=== PATIENT | female | born 1960 | race Caucasian/White ===

== ENCOUNTER → 2023-04-12 10:56 | Outpatient (REF) | payer OTHER, SELFPAY | LOC: HWRAD 10:56 | PROVIDERS: ATTENDING PHYSICIAN Family Medicine | DX: Z87.891 Personal history of nicotine dependence (principal) | CPT/HCPCS: 71271 ==

== ENCOUNTER → 2023-06-25 08:43 | Outpatient (REF) | payer OTHER, SELFPAY | LOC: RAD 08:43 | PROVIDERS: ATTENDING PHYSICIAN Surgery Vascular Surgery; FAMILY PHYSICIAN Family Medicine | DX: I71.43 Infrarenal abdominal aortic aneurysm, without rupture (principal) | CPT/HCPCS: 76770 ==

== ENCOUNTER 2023-09-19 19:38 | Inpatient (IN) | payer OTHER, SELFPAY ==
[2023-09-19 15:59] VITALS: BP 162/100
[2023-09-19 16:17] LABS: % Basophils 0.7 % (0-2); % Eosinophils 0.2 % (0-6); % Immature Granulocytes 0.7 % (0-0.5); % Lymphocytes 19.4 % (20.5-51.1); % Monocytes 9.4 % (1.7-9.3); % Neutrophils 69.6 % (42.2-75.2); Absolute Basophils 0.1 10^3/uL (0-0.2); Absolute Immature Granulocytes 0.1 10^3/uL (0-0.05); Absolute Neutrophils 7.2 10^3/uL (1.4-6.5); Hematocrit 34.9 % (37.0-47.0); Hemoglobin 12.3 g/dL (12.0-16.0); Mean Corp Hgb Conc. 35.2 g/dL (33.0-37.0); Mean Corpuscular Hgb 33.3 pg (27.0-31.0); Mean Corpuscular Volume 94.6 fL (81.0-99.0); Mean Platelet Volume 8.8 fL (7.4-10.4); Nucleated Red Blood Cells % 0 %; Platelet Count 295 10^3/uL (130-400); Red Blood Cell Count 3.69 10^6/uL (4.20-5.40); Red Cell Dist. Width 13.2 % (11.5-14.5); White Blood Cell Count 10.3 10^3/uL (4.8-10.8)
[2023-09-19 16:39] LABS: ALT (SGPT) 41 U/L (0-35); AST (SGOT) 36 U/L (14-36); Albumin 4.2 g/dl (3.5-5.0); Alkaline Phosphatase 56 U/L (38-126); Blood Urea Nitrogen 21 mg/dl (7-17); Calcium 9.1 mg/dl (8.4-10.2); Carbon Dioxide 23 mmol/L (22-30); Chloride 106 mmol/L (98-107); Glucose 109 mg/dl (70-99); Potassium 4.2 mmol/L (3.5-5.1); Sodium 139 mmol/L (135-145); Total Bilirubin 0.5 mg/dl (0.2-1.3); Total Protein 6.9 g/dl (6.3-8.2); eGFR > 60.00
--- NOTE | 2023-09-19 16:58 | ED.GENMED ---
History of Present Illness
General
Chief Complaint: Rectal Bleeding
Source: patient
Exam Limitations: none
Time Seen by Provider: 09/19/23 16:57
Nursing documentation reviewed up to this point in time: agreed with
History of Present Illness
History of Present Illness:
63-year-old female with history of HTN, GERD, hypothyroidism, seen 2 weeks ago by colorectal for anal fissure, states this has completely resolved.
She is here today for a total of 7 bloody stools since yesterday. Her last bowel movement was 2 hours ago. She typically has 3-4 stools a day. She has a picture on her phone of her last 2 stools. There is old large amount of blood with formed
stool in the toilet and 1 picture and then after that she has black stool with some maroon water in the toilet. She has 'a little' abdominal pain at times, nothing significant. She denies fever or chills. She denies weakness or dizziness,
shortness of breath or chest pain.
Past History
Past History
ED Past Medical History: GERD, Hypothyroidism and Other (Degenerative disc disease in the cervical spine, Tinnitus, hepatitis C); Negative Arrthythmia, HTN, Hypercholesterolemia or NIDDM
ED Past Surgical History: None
Patient has exhibited threatening behavior?: No
Social History
Tobacco: Smoker
Alcohol: Occasional (rare)
Drug: None
Personal: Single
Living: with family
Employment: Employed
Family History
Family History: Hypertension; Negative Early CAD
Review of Systems
Review of Systems
Allergies reviewed?: Yes
All Other Systems: ROS reviewed and negative except as documented in HPI and ROS
Constitutional: Denies fever
Respiratory: Denies trouble breathing
Cardiac: Denies chest pain or syncope
ABD/GI: Reports bloody stools; Denies abdominal pain, nausea or vomiting
: Denies dysuria or difficulty voiding
Musculoskeletal: Reports no symptoms
Skin: Reports no symptoms
Phy Exam
Physical Exam
Physical Exam:
GENERAL: No acute distress. A&Ox3.
CONSTITUTIONAL: Afebrile.
EYES: Clear, conjunctivae normal
ENMT: moist mucus membranes, Pharynx nl
RESPIRATORY: Regular respirations, nonlabored, lungs clear.
CARDIOVASCULAR: Regular rate and rhythm, no murmurs, no rubs.
GI: Soft, nontender, normal BS
Rectal:
MUSCULOSKELETAL: Moves with ease. Well perfused.
SKIN: Warm, dry, pink
PSYCH: Normal mood and affect. Well kept, interactive and appropriate
NEUROLOGIC: Awake, alert and oriented. No focal neurological deficits
Scores
GI Bleed
History of cardiac failure?: No
History of hepatic failure?: No
History of recent syncope?: No
Pulse >100?: No
SBP <110?: No
Hgb <13 (male) <12 (female)?: No
BUN >18mg/dL?: Yes
Melena present?: Yes
Recommendation: Pt has higher risk for needing a medical intervention. Inpatient admission recommended.
Course
Orders/Labs/Results
Orders:
Orders
09/19/23 Breakfast
Clear Liquid
09/19/23 16:12
Complete Blood Count/With Diff Urgent
Comprehensive Metabolic Panel Urgent
09/19/23 17:51
CT Angio Abd/Pelvis w/wo IV [CT Abd/pelvis Angio W/wo Iv] Urgent
Comment:
Reason For Exam: lower GI bleeding
09/19/23 18:07
Type+Screen Urgent
09/19/23 18:57
Admit/Transfer Patient As Directed
Co-Sign Provider:
Level of Care: Inpatient admission
Assign to:: Medical/Surgical
Physician / Group: lissa
Diagnosis: rectal bleed
Reason for Hospitalization: rectal bleed
Expected length of stay greater than two midnights?: Yes
ELOS- Estimated Length of Stay in days: 3
I certify the patient meets the requirements for IP care: Yes
PRN Pain Medication Management As Directed
May give lesser potent ordered pain med per pt: Yes
preference::
Protocol:: Medication orders for pain may be administered in a
manner that supports deferring to patient preference
when the pt is:
- Requesting an ordered lesser potent pain medication.
Least to most potent pain medications are defined
as: acetaminophen < NSAID < tramadol < opioids
(morphine, oxycodone, hydromorphone).
- Requesting a lesser dose of the same medication IF
ORDERED.
- Requesting a less intrusive route of administration
if both routes are prescribed by the provider (PO <
IV).
09/19/23 18:58
Code Status As Directed
Resuscitation Status: Full Code
09/19/23 20:26
GASTROINTESTINAL CONSULT Routine
Consulting Provider: Humberto Kitchen
Was physician already notified: Yes
Activity As Directed
Activity Level: As Tolerated
INT (Intravenous Needle Therapy) As Directed
Comment: Place 2 IV catheters of the largest bore possible until stable
Orthostatic Vital Signs As Directed
Orthostatic VS Frequency: Now
Comment: then every four hours for twenty-four hours
Pneumatic Compression Sleeves As Directed
Type: Thigh high
Vital Signs As Directed
Frequency: Per unit guidelines
DX Deep Vein Thrombosis Video Routine
09/19/23 21:00
Pantoprazole [Protonix IV] 40 mg IV BID
09/20/23 00:00
H&H Q6H
09/20/23 Breakfast
NPO
Allow oral meds: Yes
Allow clear liquids: No
NPO for procedure after (time): 09/20/2023 0000
Basic Metabolic Panel IN AM
Complete Blood Count/No Diff IN AM
H&H Q6H
Levothyroxine [Synthroid] 125 mcg PO DAILY@0600
09/20/23 08:00
Lisinopril [Zestril] 10 mg PO DAILY
Metoprolol Xl [Toprol Xl] 25 mg PO DAILY
09/20/23 12:00
H&H Q6H
09/20/23 18:00
H&H Q6H
Atorvastatin [Lipitor] 10 mg PO QPM
09/21/23 06:00
Basic Metabolic Panel IN AM
Complete Blood Count/No Diff IN AM
09/22/23 06:00
Basic Metabolic Panel IN AM
Complete Blood Count/No Diff IN AM
09/23/23 06:00
Basic Metabolic Panel IN AM
Complete Blood Count/No Diff IN AM
09/24/23 06:00
Basic Metabolic Panel IN AM
Complete Blood Count/No Diff IN AM
Abnormal Lab Results
09/19/23
16:12
RBC 3.69 L 10^6/uL
(4.20-5.40)
Hct 34.9 L %
(37.0-47.0)
MCH 33.3 H pg
(27.0-31.0)
Abs Immat Gran (auto) 0.1 H 10^3/uL
(0-0.05)
Absolute Neuts (auto) 7.2 H 10^3/uL
(1.4-6.5)
Absolute Monos (auto) 1.0 H 10^3/uL
(0.1-0.6)
Immature Gran % 0.7 H %
(0-0.5)
Lymphocytes % 19.4 L %
(20.5-51.1)
Monocytes % 9.4 H %
(1.7-9.3)
BUN 21 H mg/dl
(7-17)
Glucose 109 H mg/dl
(70-99)
ALT 41 H U/L
(0-35)
09/19/23 16:12
09/19/23 16:12
Vital Signs
Initial and Last Documented VS:
Initial Vital Signs
Temp Pulse Resp BP Pulse Ox
98.7 F 85 18 162/100 95
09/19/23 15:59 09/19/23 15:59 09/19/23 15:59 09/19/23 15:59 09/19/23 15:59
Last Documented Vital Signs
Temp Pulse Resp BP Pulse Ox
98.7 F 85 18 162/88 96
09/19/23 20:30 09/19/23 20:30 09/19/23 20:30 09/19/23 20:30 09/19/23 20:40
MDM/Problems Addressed
Differential Diagnosis Includes:
Hemorrhoid, fissure, GI bleed
MDM/Problems Addressed:
63-year-old female with history of HTN, GERD, hypothyroidism, seen 2 weeks ago by colorectal for anal fissure, states this has completely resolved.
She is here today for a total of 7 bloody stools since yesterday. Her last bowel movement was 2 hours ago. She typically has 3-4 stools a day. She has a picture on her phone of her last 2 stools. There is old large amount of blood with formed
stool in the toilet and 1 picture and then after that she has black stool with some maroon water in the toilet. She has 'a little' abdominal pain at times, nothing significant. She denies fever or chills. She denies weakness or dizziness,
shortness of breath or chest pain.
5:15 p.m.
Abdomen benign
Rectal: no stool in rectal vault, flecks of red in mucus, hematests positive, no visible hemorrhoids, rectal exam non tender
CBC: No clinically significant abnormality
CMP: BUN 21 otherwise no clinically significant abnormality
Hospitalist notified of admission. Pt remains stable
Blood consent signed and scanned into chart
5:50 p.m.
Hospitalist requests CTA, ordered.
*Critical Care Note
Total Time (30-74mins, 75-104mins- exclusive of procedures): Not Applicable
ED Attending Note
-
Portions of this chart may have been created with voice recognition software.� Occasional wrong word or��sound alike� substitutions may have occurred due to the inherent limitations of voice recognition software.
Discharge Plan
Departure
Patient Disposition: Admit
Date of Disposition: 09/19/23
Time of Disposition: 17:12
Admit to: Med/Surg
Presentation/result/management discussed w/ accepting MD/DO: Hospitalist
Condition: Good
Discharge Problem:
Rectal bleeding
Interventions
Interventions:
*Risk Screen - Suicide Last Done: 09/19/23 15:59
*General Assessment Last Done: 09/19/23 15:59
*Neglect/Abuse Screening Last Done: 09/19/23 15:59
*ED COVID-19 Vaccine History Last Done: 09/19/23 20:37
*Nursing Disposition Last Done: 09/19/23 20:15
VO-Ssepsi-Bkrrbhmnva Assessment Last Done: 09/19/23 17:19
ED- Cardiac Assessment Last Done: 09/19/23 17:19
ED- Pulmonary Assessment Last Done: 09/19/23 17:19
Discharge Date and Time
Discharge Date/Time: 09/19/23 20:15
[2023-09-19 17:18] VITALS: BP 139/69
[2023-09-19 17:19] VITALS: BMI 36.8
[2023-09-19 18:00] VITALS: BP 118/74
--- NOTE | 2023-09-19 18:43 | HPS.HSE ---
Family Physician
-
Family Physician: Hilario Villarreal
Chief Complaint
-
rectal bleed
History of Present Illness
63-year-old female with history of HTN, GERD, hypothyroidism, seen 2 weeks ago by colorectal for anal fissure, states this has completely resolved presented to us with rectal bleeding since yesterday. stated started off with blood bloody stool and
then changed to dark purple color. last BM was 3 hours ago. stated some mild abdominal cramps. denied n/v. she takes aspirin daily. she was also taking Aleve daily for last four months. she stopped taking Aleve four days ago due to elevated liver
enzymes. denied fever, chills, chest pain, sob. denied ZAIDI, dizzy or syncopal episode. denied dysuria or hematuria.
on arrival hgb stable at 12.0.heme test positive. admitting for further managment.
Medical History
Past Medical History
Past Medical History: Reports Other
Additional Past Medical History:
AAA
htn
lumbar radiculopathy
hld
Past Surgical History: Reports Other
Additional Past Surgical History:
bunionectomy
Social History
Tobacco: Former Smoker
Alcohol: Occasional
Drug: None
Family History
Family History: Not pertinent
Allergies / Home Medications
Allergies reflects when Allergies were last updated in [facility].
Home Medications with original date entered in [facility]
Allergy/Medication List:
Allergies
Allergy/AdvReac Type Severity Reaction Status Date / Time
No Known Allergies Allergy Verified 09/19/23 15:59
Home Medications
levothyroxine 125 mcg tablet 125 mcg PO DAILY 04/11/11
atorvastatin 10 mg tablet 10 mg PO QPM 12/23/20
cyclobenzaprine 10 mg tablet 10 mg PO TIDPRN PRN pain 12/23/20
lisinopril 5 mg tablet 10 mg PO DAILY 12/23/20
aspirin 81 mg tablet,delayed release 81 mg PO DAILY 09/19/23
metoprolol succinate 25 mg tablet,extended release 24 hr 25 mg PO DAILY 09/19/23
Review of Systems
-
Constitutional: Reports No Symptoms
EENT: Reports No Symptoms
Respiratory: Reports No Symptoms
Cardiac: Reports No Symptoms
Abdomen/GI: Reports Bloody Stools and Black Stools
: Reports No Symptoms
Musculoskeletal: Reports No Symptoms
Skin: Reports No Symptoms
Neurological: Reports No Symptoms
Endocrine: Reports No Symptoms
Hematologic/Lymphatic: Reports No Symptoms
Psych: Reports No Symptoms
Physical Exam
Vital Signs
Vital Signs
Temp Pulse Resp BP Pulse Ox
98.7 F 85 18 139/69 97
09/19/23 15:59 09/19/23 15:59 09/19/23 15:59 09/19/23 17:18 09/19/23 17:18
Physical Exam
General: Well Developed, Well Nourished and No Apparent Distress
HEENT: NormoCephalic, Moist mucous membranes and Atraumatic
Respiratory: Clear
Cardiac: S1/S2 and Regular Rhythm; No Murmur or Rub
GI: Soft, Non Tender, Non Distended and Normal Bowel Sounds; No Organomegaly
Rectal: Deferred by Provider
Musculoskeletal: No Clubbing, No Cyanosis and No Edema
Skin: No Rash
Neuro: AO x 3 and Nonfocal/grossly intact
Psych: Calm
Laboratory Results
-
09/19/23 16:12
09/19/23 16:12
Laboratory Results
Total Bilirubin 0.5 mg/dl (0.2-1.3) 09/19/23 16:12
AST 36 U/L (14-36) 09/19/23 16:12
ALT 41 U/L (0-35) H 09/19/23 16:12
Alkaline Phosphatase 56 U/L (38-126) 09/19/23 16:12
Data Reviewed
-
Lab Data: Labs Reviewed by me
Impression/Plan
-
#rectal bleeding likely lower GI bleed concern for diverticular bleed
-hgb stable at 12.3
-heme test positive
-trend hgb, transfuse if hgb less than 7
-NPO after MN
-GI consulted
-IV PPI BID
-consented for transfusion in ER.
#HLD
-statin
#hypothyroidism
-levothyroxine
#essential htn
-lisinopril and metoprolol continued with hold parameters
#dvt prophylaxis
-scd
#CODE status
-full code
--- NOTE | 2023-09-19 19:07 | W.PN.UPDATE ---
Update Note
Progress Note Update
Patient seen in conjunction with [employer]. Agree with obtained history, physical and assessment and plan.
Briefly, this is a 63 y.o female with h/o hypothyroid, htn, hld presenting to ED with 2 days of rectal bleeding. She last had a colonoscopy 10 years ago. She had recent issue with anal fissure and sees colorectal with plan for upcoming
colonosocpy. She denies any rectal pain, abdominal pain, nausea, vomiting, diarrhea. She reports sudden onset of bright red bloody bowel movement up to 7 times a day then turning dark. She denies dizziness or lightheadedness. She reports nsaid
use and is on baby aspirin which she discontinued 2 days ago. She denies any knowledge of diverticula disease.
In ED she was hemodynamically stable. SBP 118, DBP 74. p 77. Hgb 12.3, unchanged. Normal platelet at 295. Chemistries wnl. CT GI bleed pending.
Lower GI bleed - Suspect diverticular vs hemorrhoidal bleeding. Patient well appearing and hemodynamically stable with stable Hgb.
- clear liquid diet, npo after midnight
- type and screen, trend h/h and transfuse for goal Hgb > 7
- hold aspirin
- GI consultation and notified, to see in am.
DVT PPX with SCDs
Ful Code
[2023-09-19 20:30] VITALS: BP 162/88
[2023-09-19 20:31] VITALS: BMI 36.7
[2023-09-19 20:51] VITALS: BP 131/86; BP 133/80; BP 141/75; PULSE 72; PULSE 80; PULSE 92
[2023-09-19] MEDS: PROTONIX IV 40 MG IV (21:05)
[2023-09-19] MEDS: NSS (PRESERVATIVE FREE) 10 ML IV (21:06)
[2023-09-19] MEDS: TOPROL XL 25 MG PO (21:06)
[2023-09-19] MEDS: LIPITOR 10 MG PO (21:06)
--- NOTE | 2023-09-19 21:41 | PTCARENOTE ---
Pt admitted to 4E. pt si AAOX3, regular heart sounds , + pulses. and traces of BLLE. Lung sounds are clear. Pt wears CPAP HS, but will prefer O2 while being in the hospital, [employer] notified. Abd round and obese. SCD in place. Pt was inform of being NPO
at midnight.
[2023-09-19 23:56] VITALS: BP 112/70; BP 116/75; BP 120/73; PULSE 76; PULSE 84; PULSE 93
[2023-09-20 00:31] LABS: Hematocrit 33.5 % (37.0-47.0); Hemoglobin 11.7 g/dL (12.0-16.0)
[2023-09-20] MEDS: SYNTHROID 125 MCG PO (04:31)
[2023-09-20 05:09] LABS: Hematocrit 31.9 % (37.0-47.0); Hemoglobin 11.1 g/dL (12.0-16.0); Mean Corp Hgb Conc. 34.8 g/dL (33.0-37.0); Mean Corpuscular Hgb 34.2 pg (27.0-31.0); Mean Corpuscular Volume 98.2 fL (81.0-99.0); Mean Platelet Volume 9.2 fL (7.4-10.4); Platelet Count 262 10^3/uL (130-400); Red Blood Cell Count 3.25 10^6/uL (4.20-5.40); Red Cell Dist. Width 13.1 % (11.5-14.5); White Blood Cell Count 8.8 10^3/uL (4.8-10.8)
[2023-09-20 05:32] LABS: Blood Urea Nitrogen 20 mg/dl (7-17); Calcium 8.8 mg/dl (8.4-10.2); Carbon Dioxide 25 mmol/L (22-30); Chloride 105 mmol/L (98-107); Estimated Creatinine Clearance 67 ml/min; Glucose 88 mg/dl (70-99); Potassium 4.3 mmol/L (3.5-5.1); Sodium 137 mmol/L (135-145); eGFR > 60.00
[2023-09-20 07:10] VITALS: BP 113/60; BP 113/65; BP 114/60; PULSE 57; PULSE 65; PULSE 68
[2023-09-20] MEDS: ZESTRIL 10 MG PO (08:50)
[2023-09-20] MEDS: NSS (PRESERVATIVE FREE) 10 ML IV ×2 (08:50→20:50)
[2023-09-20] MEDS: PROTONIX IV 40 MG IV ×2 (08:50→20:49)
--- NOTE | 2023-09-20 08:58 | CON.GI ---
Addendum entered and electronically signed by Humberto Kitchen MD 09/20/23 14:34:
I saw and examined the patient.
The medical lab specialist's note was reviewed and I agree with the note.
Comment: 63yo female presents with painless rectal bleeding. She was recently treated by Colorectal Surgery for anal fissure, but that resolved. Last colonoscopy at [facility] about 10 yrs ago negative. She has had 3 colonoscopies in the past all
negative. CTA showed no active bleeding, there was 5cm length bowel wall thickening proximal sigmoid without stranding. Hgb has remained stable in 11 range after admission hgb 12.3
REC:
Will plan colonoscopy tomorrow to evaluate bleeding, possibly diverticular
No pain or tenderness to suggest diverticulitis despite thickening seen on CT
Follow Hgb and transfuse as needed
Original Note:
Consultation
-
Date/Time Consultation Performed: 09/20/23
Performing Provider: Len/Imtiaz
Reason for Consultation: rectal bleeding
Medical History
Chief Complaint / HPI
Chief Complaint: Rectal bleeding
History of Present Illness:
Patient is a 63 year old female with past medical history of anal fissure, hemorrhoids, stable AAA (follows with vascular), degenerative disc disease, lumbar radiculopathy, who presented to ED 09/18 from home for rectal bleeding. She had a total of 7
formed bowel movements yesterday, and the first one was grossly bloody with bright red blood in the toilet bowel. The subsequent 6 bowel movements were dark black. She had no pain with defecation, no diarrhea. She has a recent history of anal
fissure and constipation, which she reports have completely resolved. Her normal bowel movements are ~3x/day, brown, soft, easy to pass. She denies any black/bloody stools prior to yesterday. She has occasional bloating and reflux, and she denies
abdominal pain, nausea, vomiting, pain/difficulty/coughing with swallowing. For the past month, she was taking 1 extra-strength aleve daily for back pain, and stopped about 5 days ago. She takes 2 extra-strength tylenol about twice per week. Baby
aspirin daily. Denies lightheadedness, dizziness, fevers/chills, chest pain, SOB.
She previously followed with GI at [facility] for anal fissures and hemorrhoids, but not in the past 10 years. She had a hemorrhoids cauterization at the time of her last colonoscopy in ~2013, which she states was normal and recommended repeating in 10
years. She has a remote history of hepatitis C, which was treated.
In the ED: Hgb 12.3 (stable from 2020)
AST 36, ALT 41, Tbili 0.5, alk phos 56, BUN 21, Cr 0.8, BUN/Cr 26.25
Past Medical History
Past Medical History: GERD, HTN, Hypercholesterolemia, Hypothyroidism and Other (anal fissure, hemorrhoid, AAA without rupture, lumbar radiculopathy, degenerative disc disease cervical spine, hepatitis C s/p treatment, PADMA)
Past Surgical History: Other (bunionectomy)
Social History
Tobacco: Former Smoker (last use ~5y ago (previously 1 pack per day x40 years))
Alcohol: Former (last use ~2018 (previously drank ~12 beers per week for a few years))
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
Personal: Single
Living: Alone
Employment: Retired (data technical lead)
Family History
Family History: CAD ([place]- mother, sister), Cancer (lung cancer- sister, throat cancer- brother), Diabetes, Hypertension and Other (AAA- brother s/p repair ', sister, mother; diverticulitis- mother, sister; colonic polyps- mother)
Allergies / Home Medications
Allergy/AdvReac Type Severity Reaction Status Date / Time
No Known Allergies Allergy Verified 09/19/23 15:59
�Medication �Instructions �Recorded
levothyroxine 125 mcg tablet 125 mcg PO DAILY 04/11/11
atorvastatin 10 mg tablet 10 mg PO HS 12/23/20
cyclobenzaprine 10 mg tablet 10 mg PO TIDPRN PRN pain 12/23/20
lisinopril 5 mg tablet 10 mg PO DAILY 12/23/20
aspirin 81 mg tablet,delayed 81 mg PO DAILY 09/19/23
release
metoprolol succinate 25 mg 25 mg PO HS 09/19/23
tablet,extended release 24 hr
Review of Systems
-
All other systems: A 12 pt ROS was Negative except as stated above in HPI
Vital Signs
Temp Pulse Resp BP Pulse Ox
98.1 F 57 16 113/60 96
09/20/23 07:10 09/20/23 07:10 09/20/23 07:10 09/20/23 07:10 09/20/23 07:10
Physical Exam
Exam
General: Ambulating room well and sitting comfortably in bed, no acute distress.
Heart: Regular rate and rhythm.
Lungs: Nonlabored breathing. Clear and equal to auscultation bilaterally.
GI: Normal bowel sounds present. Abdomen soft, nontender, nondistended. No rebound, rigidity, guarding.
Results
WBC 8.8 10^3/uL (4.8-10.8) 09/20/23 04:28
Hgb 11.1 g/dL (12.0-16.0) L 09/20/23 04:28
Hct 31.9 % (37.0-47.0) L 09/20/23 04:28
MCV 98.2 fL (81.0-99.0) 09/20/23 04:28
Plt Count 262 10^3/uL (130-400) 09/20/23 04:28
Absolute Neuts (auto) 7.2 10^3/uL (1.4-6.5) H 09/19/23 16:12
Sodium 137 mmol/L (135-145) 09/20/23 04:28
Potassium 4.3 mmol/L (3.5-5.1) 09/20/23 04:28
Chloride 105 mmol/L (98-107) 09/20/23 04:28
Carbon Dioxide 25 mmol/L (22-30) 09/20/23 04:28
BUN 20 mg/dl (7-17) H 09/20/23 04:28
Creatinine 0.9 mg/dL (0.6-1.0) 09/20/23 04:28
Calcium 8.8 mg/dl (8.4-10.2) 09/20/23 04:28
Total Bilirubin 0.5 mg/dl (0.2-1.3) 09/19/23 16:12
AST 36 U/L (14-36) 09/19/23 16:12
ALT 41 U/L (0-35) H 09/19/23 16:12
Alkaline Phosphatase 56 U/L (38-126) 09/19/23 16:12
Diagnostic Image Results:
Abdomen/Pelvis CT 09/19/23:
IMPRESSION:
1). There was no active gastrointestinal hemorrhage during the course of the examination
2). Diverticuli are present in the colon and there is a 5 cm in length area of suspected bowel wall thickening without pericolonic inflammatory stranding in the proximal sigmoid colon which may reflect low-grade colitis or diverticulitis.
3). There is fusiform aneurysmal dilatation of the infrarenal abdominal aorta to 4.3 cm in maximal diameter.
4). There is diffuse fatty infiltration of the liver.
Prior GI Procedures:
EGD:
~2006 (@[facility])- performed for food impaction; normal per patient
Colonoscopy:
~2013 (@[facility])- normal, no polyps per patient; with concurrent hemorrhoid cauterization
Assessment / Plan
-
63 year old with past medical history of anal fissure and hemorrhoids who presented to ED 09/18 for 7 episodes of painless hematochezia/melena in one day. GI consulted to evaluate source of GI bleed.
Impression:
Painless hematochezia, melena
- May be upper or lower GI bleed. Possible etiologies include polyp, diverticulosis, esophagitis, bleeding ulcer, angiodysplasia, varices, mass.
- CT demonstrated colonic diverticula as well as 5cm length of bowel wall thickening in proximal sigmoid colon without pericolonic inflammatory stranding. Less concerning for colitis or diverticulitis given patient's clinical presentation.
- VSS. Hgb on admission 12.3, and repeat serial hgb have been stable.
Diverticulosis
Anal fissure- resolved prior to admission
Hemorrhoids
GERD
Hepatitis C s/p treatment
Hypertension
Hypothyroidism
Stable AAA
Degenerative disc disease
Lumbar radiculopathy
PADMA
Recommendations:
- Continue clear liquid diet today.
- Plan for colonoscopy tomorrow, prep to be completed over night. Can consider EGD if colonoscopy is unrevealing.
- Continue protonix BID.
- Further recommendations to come.
-
-
Thank you for consultation and allowing me to participate in the patient's care. Please call the international representative GI physician during the after hours with any questions or concerns.
--- NOTE | 2023-09-20 10:20 | W.PN.HOSP.TC ---
Addendum entered and electronically signed by Colton Myles MD 09/20/23 17:34:
I saw and evaluated the patient. I reviewed the resident�s note and agree with findings and plan as documented in the resident�s note.
Original Note:
Today's Communication/Plan
-
GI consult plans to conduct a colonoscopy tomorrow to evaluate bleeding. Continue to trend hemoglobin and transfuse if needed. Most recent abdominal/pelvis CT showed diverticula present in the colon, there was suspected bowel wall thickening
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 There was also diffuse
fatty infiltration seen of the liver.
Assessment / Plan
Assessment / Plan
- Rectal Bleeding likely lower GI bleed concern for diverticular bleed
hgb stable at 11.7
heme test positive
trend hgb, transfuse if hgb less than 7
GI consulted -colonoscopy planned for tomorrow to evaluate for bleeding that may be possibly due to a diverticular cause.
IV PPI BID
Aspirin held
consented for transfusion in ER.
Currently on clear liquid diet
CT of abdomen and pelvis showed no active gastrointestinal hemorrhage. Diverticula were present in the colon and there is a 5 cm in length area of suspected bowel wall thickening without pericolonic inflammatory stranding in the proximal sigmoid
colon which may reflect low-grade colitis or diverticulitis. There is a fusiform aneurysmal dilatation of the infrarenal abdominal aorta to 4.3 cm in maximal diameter. There was also diffuse fatty infiltration of the liver.
- Hyperlipidemia:
Atorvastatin given
- Hypothyroidism:
levothyroxine given
- Essential Hypertension:
lisinopril and metoprolol continued with hold parameters
- Obesity:
Patient's current BMI is 36.7 which is greater than 30 qualifying her for obese BMI category.
Consider dietary consult
DVT prophylaxis: Sequential compression device
CODE status: full code
Anticipated Discharge: 24 - 48 hours
Subjective/Interval History
-
Date of Service: September 20, 2023
Met with patient at the bedside. Overall, she feels a bit better than she did yesterday. She has not had any bowel movements in the morning and hopes to have a bowel movement later on in the day. Her last bowel movement was yesterday in the mid
afternoon and it was blood within the stool. She offers no complaints at the present time.
Objective Data
-
Labs:
Laboratory Results
09/20/23 09/20/23 09/20/23
00:09 04:28 12:00
WBC 8.8
Hgb 11.7 L 11.1 L Pending
Hct 33.5 L 31.9 L Pending
Plt Count 262
Sodium 137
Potassium 4.3
Chloride 105
Carbon Dioxide 25
BUN 20 H
Creatinine 0.9
Glucose 88
Calcium 8.8
09/20/23
18:00
WBC
Hgb Pending
Hct Pending
Plt Count
Sodium
Potassium
Chloride
Carbon Dioxide
BUN
Creatinine
Glucose
Calcium
Vital Signs:
Vital Signs
Temp Pulse Resp BP Pulse Ox
98.1 F 57 16 113/60 96
09/20/23 07:10 09/20/23 07:10 09/20/23 07:10 09/20/23 07:10 09/20/23 07:30
I&O
09/19/23 09/20/23 09/21/23
06:59 06:59 06:59
Intake Total 360 / 360
Balance 360 / 360
Review of Systems
-
History Source: Patient
Constitutional: Reports No Symptoms
EENT: Reports No Symptoms Reported
Respiratory: Reports No Symptoms
Cardiac: Reports No Symptoms
Abdomen/GI: Reports Bloody Stools
Breast: Reports No Symptoms
Genitourinary: Reports No Symptoms
Musculoskeletal: Reports No Symptoms
Skin: Reports No Symptoms
Neuro: Reports No Symptoms
Endocrine: Reports No Symptoms
Hematologic / Lymphatic: Reports No Symptoms
Allergy / Immunology: Reports No Symptoms
Physical Exam
-
General: Well Developed, Well Nourished, No Apparent Distress and Comfortable
HEENT: Normocephalic, Atraumatic and Moist Mucous Membranes
Respiratory: Clear to Auscultation
Cardiac: Regular Rhythm and S1/S2
Breast: Deferred by me
GI: Soft, Nontender, Nondistended and Normal Bowel Sounds
Rectal: Deferred by Provider
Genito-urinary: Deferred by me
Musculoskeletal: No Clubbing, No Cyanosis and No Edema
Skin: Warm and Dry
Neuro: Nonfocal/Grossly Intact
Psych: Calm
--- NOTE | 2023-09-20 10:52 | PTCARENOTE ---
Patient had BM. Blood noted in toilet with stool. Trending HGB. Patient on clear liquids at this time.
[2023-09-20 11:13] VITALS: BP 119/76; BP 128/70; PULSE 80; PULSE 87
[2023-09-20 12:21] LABS: Hematocrit 34.4 % (37.0-47.0); Hemoglobin 11.7 g/dL (12.0-16.0)
--- NOTE | 2023-09-20 13:41 | PTCARENOTE ---
Patient had two bright red bloody bowel movements today. GI MD aware. On clear liquid diet today. Denies N/V or abdominal pain.
[2023-09-20 15:31] VITALS: BP 119/64; BP 121/70; BP 128/67; PULSE 80; PULSE 84; PULSE 91
[2023-09-20 15:34] VITALS: BP 121/70
[2023-09-20] MEDS: NULYTELY SOLUTION 4 LITERS PO (16:28)
--- NOTE | 2023-09-20 16:45 | PTCARENOTE ---
Bowel prep started for colonoscopy tomorrow. Patient verbalizes understanding of prep and of need to remain NPO after midnight tonight.
--- NOTE | 2023-09-20 16:57 | CM ---
Alert awake oriented patient who lives alone who lives in a 2 story condo with 12 steps to enter.She is independent in driving and in all activities of daily living.Offered VN she declined.She uses CPAP from [employer].
Never had VN/SNF
Ph[facility]
PCP Dr Villarreal
PLAN Home declined VN
[2023-09-20 18:03] LABS: Hemoglobin 11.8 g/dL (12.0-16.0)
[2023-09-20 19:27] VITALS: BP 111/74; BP 113/74; BP 138/71; PULSE 77; PULSE 82; PULSE 84
[2023-09-20] MEDS: LIPITOR 10 MG PO (22:06)
[2023-09-20] MEDS: TOPROL XL 25 MG PO (22:07)
[2023-09-20 22:11] VITALS: BP 126/73
[2023-09-21] MEDS: SYNTHROID 125 MCG PO (05:48)
[2023-09-21 06:56] VITALS: BP 111/57
[2023-09-21 07:10] LABS: Hematocrit 30.2 % (37.0-47.0); Hemoglobin 10.3 g/dL (12.0-16.0); Mean Corp Hgb Conc. 34.1 g/dL (33.0-37.0); Mean Corpuscular Hgb 33.1 pg (27.0-31.0); Mean Corpuscular Volume 97.1 fL (81.0-99.0); Mean Platelet Volume 9.1 fL (7.4-10.4); Platelet Count 254 10^3/uL (130-400); Red Blood Cell Count 3.11 10^6/uL (4.20-5.40); Red Cell Dist. Width 13.2 % (11.5-14.5); White Blood Cell Count 9.3 10^3/uL (4.8-10.8)
[2023-09-21 07:32] LABS: Blood Urea Nitrogen 14 mg/dl (7-17); Calcium 8.8 mg/dl (8.4-10.2); Carbon Dioxide 30 mmol/L (22-30); Chloride 102 mmol/L (98-107); Estimated Creatinine Clearance 60 ml/min; Glucose 95 mg/dl (70-99); Sodium 136 mmol/L (135-145); eGFR > 60.00
[2023-09-21] MEDS: PROTONIX IV 40 MG IV (07:59)
[2023-09-21] MEDS: ZESTRIL PO (08:01)
--- NOTE | 2023-09-21 08:47 | W.PN.HOSP.TC ---
Addendum entered and electronically signed by Soco Zhao MD, Resident 09/24/23 15:52:
Clarification from problem list cited on 09/20:
1st problem = Acute blood loss anemia secondary to GI bleed
Addendum entered and electronically signed by Colton Myles MD 09/21/23 15:16:
Read, reviewed, and agree. See same day progress note for additional details. Time spent coordinating care, DC planning, review of DC plan of care with resident, transition of care, review of records in EMR, med rec, consults, notes, d/w
consultants, nursing, family, and CM 29 mins
Original Note:
Documented by User: Soco Zhao MD, Resident 09/21/23 13:53
Today's Communication/Plan
-
Patient underwent a colonoscopy that showed a normal terminal ileum, multiple large bowel and small bowel diverticula in the sigmoid colon, and small internal hemorrhoids. There was no evidence of any active GI bleeding. Hemoglobin and hematocrit
remain stable. Patient appears to be at her baseline and is appropriate for discharge if she has a normal bowel movement.
Assessment / Plan
Assessment / Plan
- Rectal Bleeding likely lower GI bleed concern for diverticular bleed
hgb stable at 10.3
heme test positive
trend hgb, transfuse if hgb less than 7
GI consulted -colonoscopy to evaluate for bleeding that may be possibly due to a diverticular cause. -colonoscopy showed a normal terminal ileum, multiple large bowel and small bowel diverticula in the sigmoid colon, and small internal
hemorrhoids. There was no evidence of any active GI bleeding.
IV PPI BID
Aspirin held
consented for transfusion in ER.
Currently on clear liquid diet
CT of abdomen and pelvis showed no active gastrointestinal hemorrhage. Diverticula were present in the colon and there is a 5 cm in length area of suspected bowel wall thickening without pericolonic inflammatory stranding in the proximal sigmoid
colon which may reflect low-grade colitis or diverticulitis. There is a fusiform aneurysmal dilatation of the infrarenal abdominal aorta to 4.3 cm in maximal diameter. There was also diffuse fatty infiltration of the liver.
- Hyperlipidemia:
Atorvastatin given
- Hypothyroidism:
levothyroxine given
- Essential Hypertension:
lisinopril and metoprolol continued with hold parameters
- Obesity:
Patient's current BMI is 36.7 which is greater than 30 qualifying her for obese BMI category.
Consider dietary consult
DVT prophylaxis: Sequential compression device
CODE status: full code
Anticipated Discharge: Within 24 hours
Subjective/Interval History
-
Date of Service: September 21, 2023
Met with patient at the bedside. Yesterday evening she had a red loose stools that appeared to have blood in it. She underwent a colonoscopy early in the morning in hopes that the results shed light on her current health condition.
Objective Data
-
Labs:
Laboratory Results
09/21/23
06:40
WBC 9.3
Hgb 10.3 L
Hct 30.2 L
Plt Count 254
Sodium 136
Potassium 4.0
Chloride 102
Carbon Dioxide 30
BUN 14
Creatinine 1.0
Glucose 95
Calcium 8.8
Vital Signs:
Vital Signs
Temp Pulse Resp BP Pulse Ox
98.1 F 62 16 109/57 97
09/21/23 06:56 09/21/23 06:56 09/21/23 06:56 09/21/23 08:01 09/21/23 06:56
I&O
09/20/23 09/21/23 09/22/23
06:59 06:59 06:59
Intake Total 360 / 360 2580 / 2580
Balance 360 / 360 2580 / 2580

Documented by User: Colton Myles MD 09/21/23 15:15
Assessment / Plan
Assessment / Plan
- Rectal Bleeding likely lower GI bleed concern for diverticular bleed
hgb stable at 10.3
heme test positive
GI consulted -colonoscopy to evaluate for bleeding that may be possibly due to a diverticular cause. -colonoscopy showed a normal terminal ileum, multiple large bowel and small bowel diverticula in the sigmoid colon, and small internal
hemorrhoids. There was no evidence of any active GI bleeding.
Resume Aspirin
CT of abdomen and pelvis showed no active gastrointestinal hemorrhage. Diverticula were present in the colon and there is a 5 cm in length area of suspected bowel wall thickening without pericolonic inflammatory stranding in the proximal sigmoid
colon which may reflect low-grade colitis or diverticulitis. There is a fusiform aneurysmal dilatation of the infrarenal abdominal aorta to 4.3 cm in maximal diameter. There was also diffuse fatty infiltration of the liver.
- Hyperlipidemia:
Atorvastatin given
- Hypothyroidism:
levothyroxine given
- Essential Hypertension:
lisinopril and metoprolol continued with hold parameters
- Obesity:
Patient's current BMI is 36.7 which is greater than 30 qualifying her for obese BMI category.
Consider dietary consult
DVT prophylaxis: Sequential compression device
CODE status: full code
[2023-09-21 09:13] VITALS: BP 109/57; BP 112/64
[2023-09-21 09:15] VITALS: BP 113/60
[2023-09-21 09:30] VITALS: BP 120/64
[2023-09-21 09:45] VITALS: BP 114/72
--- NOTE | 2023-09-21 14:08 | W.DS.TRANS ---
DC Summary - Supervisor Riveting
-
Discharge Instructions:
Discharge Diagnosis/Procedures Rectal bleeding, hyperlipidemia, hypothyroidism,
essential hypertension, obesity
Diet No restrictions
Activity No restrictions
Driving Restrictions As prior to admission
Bathing Restrictions None
Instructions:
Stand-Alone Forms:
Changes to Home Medications: No
Discharge Medications:
DC Medications w/original date entered in [employer]
levothyroxine 125 mcg tablet 125 mcg PO DAILY 04/11/11
atorvastatin 10 mg tablet 10 mg PO HS 12/23/20
cyclobenzaprine 10 mg tablet 10 mg PO TIDPRN PRN pain 12/23/20
lisinopril 5 mg tablet 10 mg PO DAILY 12/23/20
aspirin 81 mg tablet,delayed release 81 mg PO DAILY 09/19/23
metoprolol succinate 25 mg tablet,extended release 24 hr 25 mg PO HS 09/19/23
Home Medication Changes
Pending Results: No
--- NOTE | 2023-09-21 14:13 | W.DCSUMMARY ---
Documented by User: Soco Zhao MD, Resident 09/21/23 14:32
Discharge Summary
Discharge Data
Date of Admission: 09/19/23
Date of Discharge: 09/21/23
-
Pending Results: No
Hospital Course
Patient is a 63-year-old female with a history of hypertension, GERD, hypothyroidism who was seen 2 weeks prior to her presentation by colorectal for anal fissure. She stated that her anal fissure had completely resolved but presented to the
emergency department with rectal bleeding since the day prior to her presentation. The patient stated that her symptoms began with bloody stool that changed to dark purple in color. Her last bowel movement was 3 hours prior to her presentation to
the emergency department. She had mild abdominal cramps and denied nausea and vomiting. She took aspirin daily. She was also taking Aleve daily for the last 4 months but stopped taking Aleve 4 days ago due to elevated liver enzymes. She denied
fever, chills, chest pain, shortness of breath, dizziness, or syncope. Patient also denied dysuria or hematuria. On arrival, her hemoglobin was stable at 12. She was admitted to [facility] for concerns of GI bleed.
Upon admission her hemoglobin and hematocrit were consistently monitored for changes. Hemoccult test was positive and gastroenterology was consulted. IV Protonix was given. Patient was given her home medications for hyperlipidemia,
hypothyroidism, and essential hypertension. Patient was put on a clear liquid diet and made n.p.o. prior to her colonoscopy. Aspirin was held during her hospital stay due to worries of bleeding and anemia. CT of the abdomen and pelvis showed no
active gastrointestinal hemorrhage. Diverticula were present in the colon and there is a 5 cm in length area of suspected bowel wall thickening without pericolonic inflammatory stranding in the proximal sigmoid colon which may reflect low-grade
colitis or diverticulitis. There is a fusiform aneurysmal dilatation of the infrarenal abdominal aorta to 4.3 cm in maximal diameter. There was also diffuse fatty infiltration of the liver. These findings were shared with the patient. She was
scheduled for a colonoscopy the following day that showed a normal ileum, diverticulosis in the sigmoid colon, internal hemorrhoids, and no evidence of any active GI bleeding. The patient's hemoglobin and hematocrit remained stable throughout their
hospital stay. Patient was resumed on a regular diet and proceeded to have normal stools with no blood. Patient believes that she is ready for discharge and will opt to follow with a primary care provider in the outpatient setting.
The patient has reached maximal benefit from this hospital stay and is appropriate for discharge at the present time. There are currently no barriers impeding the patient from discharge at the present time. Patient has been recommended to
follow-up with primary care provider within 1 week of discharge. Patient has been educated in regards to improving her fiber intake and improved dietary habits.
Discharge Plan
-
Patient Disposition: Home (Routine Discharge)
Discharge Diagnosis/Procedures: Rectal bleeding, hyperlipidemia, hypothyroidism, essential hypertension, obesity
Diet: No restrictions
Activity: No restrictions
Driving Restrictions: As prior to admission
Bathing Restrictions: None
Referrals:
Hilario Villarreal MD [Family Provider] - in one week
Prescriptions:
Continued
levothyroxine 125 MCG tablet
125 mcg PO DAILY
cyclobenzaprine 10 MG tablet
10 mg PO TIDPRN PRN (Reason: pain)
atorvastatin 10 MG tablet
10 mg PO HS
lisinopril 5 MG tablet
10 mg PO DAILY
aspirin 81 mg Tablet,Delayed Release (Dr/Ec)
81 mg PO DAILY
metoprolol succinate 25 mg Tablet Extended Release 24 Hr
25 mg PO HS
Discharge Orders:
Discharge Patient (As Directed); Ordered 09/21/23
Ordered By: Soco Zhao
Discharge Date and Time
Print Language: SOU[place] KORE[place]

Documented by User: Colton Myles MD 09/21/23 15:17
Discharge Summary
Discharge Data
Date of Admission: 09/19/23
Date of Discharge: 09/21/23
Hospital Course
Patient is a 63-year-old female with a history of hypertension, GERD, hypothyroidism who was seen 2 weeks prior to her presentation by colorectal for anal fissure. She stated that her anal fissure had completely resolved but presented to the ""emergency department with rectal bleeding since the day prior to her presentation. The patient stated that her symptoms began with bloody stool that changed to dark purple in color. Her last bowel movement was 3 hours prior to her presentation to
the emergency department. She had mild abdominal cramps and denied nausea and vomiting. She took aspirin daily. She was also taking Aleve daily for the last 4 months but stopped taking Aleve 4 days ago due to elevated liver enzymes. She denied
fever, chills, chest pain, shortness of breath, dizziness, or syncope. Patient also denied dysuria or hematuria. On arrival, her hemoglobin was stable at 12. She was admitted to [facility] for concerns of GI bleed.
Upon admission her hemoglobin and hematocrit were consistently monitored for changes. Hemoccult test was positive and gastroenterology was consulted. IV Protonix was given. Patient was given her home medications for hyperlipidemia,
hypothyroidism, and essential hypertension. Patient was put on a clear liquid diet and made n.p.o. prior to her colonoscopy. Aspirin was held during her hospital stay due to worries of bleeding and anemia. CT of the abdomen and pelvis showed no
active gastrointestinal hemorrhage. Diverticula were present in the colon and there is a 5 cm in length area of suspected bowel wall thickening without pericolonic inflammatory stranding in the proximal sigmoid colon which may reflect low-grade
colitis or diverticulitis. There is a fusiform aneurysmal dilatation of the infrarenal abdominal aorta to 4.3 cm in maximal diameter- she follows with vascular for routine surveillance on this . There was also diffuse fatty infiltration of the
liver. These findings were shared with the patient. She was scheduled for a colonoscopy the following day that showed a normal ileum, diverticulosis in the sigmoid colon, internal hemorrhoids, and no evidence of any active GI bleeding. The
patient's hemoglobin and hematocrit remained stable throughout their hospital stay. Patient was resumed on a regular diet and proceeded to have normal stools with no blood. Patient believes that she is ready for discharge and will opt to follow
with a primary care provider in the outpatient setting.
The patient has reached maximal benefit from this hospital stay and is appropriate for discharge at the present time. There are currently no barriers impeding the patient from discharge at the present time. Patient has been recommended to
follow-up with primary care provider within 1 week of discharge. Patient has been educated in regards to improving her fiber intake and improved dietary habits.
Discharge Plan
-
Patient Disposition: Home (Routine Discharge)
Discharge Diagnosis/Procedures: Rectal bleeding, hyperlipidemia, hypothyroidism, essential hypertension, obesity
Diet: No restrictions
Activity: No restrictions
Driving Restrictions: As prior to admission
Bathing Restrictions: None
Referrals:
Hilario Villarreal MD [Family Provider] - in one week
Prescriptions:
Continued
levothyroxine 125 MCG tablet
125 mcg PO DAILY
cyclobenzaprine 10 MG tablet
10 mg PO TIDPRN PRN (Reason: pain)
atorvastatin 10 MG tablet
10 mg PO HS
lisinopril 5 MG tablet
10 mg PO DAILY
aspirin 81 mg Tablet,Delayed Release (Dr/Ec)
81 mg PO DAILY
metoprolol succinate 25 mg Tablet Extended Release 24 Hr
25 mg PO HS
Discharge Orders:
Discharge Patient (As Directed); Ordered 09/21/23
Ordered By: Soco Zhao
Discharge Date and Time
Print Language: [place]
--- NOTE | 2023-09-21 15:14 | CM ---
MD entered order for discharge.
Spoke with patient she said she was ready for discharge.
She said sister Fernanda will drive her home.
She declined VN need.
PLAN Home no needs
[2023-09-21 15:48] VITALS: BP 118/66
--- NOTE | 2023-09-22 10:49 | PN.CDI ---
CDI
- -
CDI:
Physician Documentation Request
Admit Date: 09/19/23 19:38
Dear Doctor Pavel,
09/20 Hospitalist PN: 'Rectal Bleeding likely lower GI bleed concern for diverticular bleed, hgb stable at 10.3...Aspirin held'
Laboratory Tests
09/19/23 09/20/23 09/21/23
16:12 00:09 06:40
Hgb 12.3 11.7 L 10.3 L
Based on the above, could you clarify in the progress notes, the appropriate diagnosis, if significant, that supports the above abnormalities and additional evaluation, monitoring and/or treatment rendered:
Acute blood loss anemia
Drop in hemoglobin
Other
Use of terms such as suspected, likely, concern for, or probable (associated with a specific diagnosis that is being evaluated, monitored, or treated as if it exists) are acceptable and can be coded in the inpatient setting, when documented at the
time of discharge.
Thank you,
Kathrin Spear RN, BSN
CDI Specialist
Available via [employer] text
Please use your independent medical judgment in providing your response.
== END 2023-09-21 15:55 | disposition home or self-care (01) | DRG 378 ==
LOC: 4 EAST ACU 19:38
PROVIDERS: Emergency Medicine; Internal Medicine Gastroenterology; Registered Nurse; ADMITTING PHYSICIAN Internal Medicine; ATTENDING PHYSICIAN Internal Medicine; CONSULT PHYSICIAN Specialist; EMERGENCY PHYSICIAN Emergency Medicine; FAMILY PHYSICIAN Family Medicine
PROC: 0DJD8ZZ Inspection of Lower Intestinal Tract, Via Natural or Artificial Opening Endoscopic (ICD-10-PCS; 2023-09-21)
DX: K57.31 Diverticulosis of large intestine without perforation or abscess with bleeding (principal); D62 Acute posthemorrhagic anemia; K64.8 Other hemorrhoids; I10 Essential (primary) hypertension; K21.9 Gastro-esophageal reflux disease without esophagitis; E66.9 Obesity, unspecified; E03.9 Hypothyroidism, unspecified; G47.33 Obstructive sleep apnea (adult) (pediatric); I71.43 Infrarenal abdominal aortic aneurysm, without rupture; M54.16 Radiculopathy, lumbar region; E78.5 Hyperlipidemia, unspecified; K76.0 Fatty (change of) liver, not elsewhere classified; K52.9 Noninfective gastroenteritis and colitis, unspecified; Z87.891 Personal history of nicotine dependence; Z79.890 Hormone replacement therapy; Z79.82 Long term (current) use of aspirin; Z79.899 Other long term (current) drug therapy; Z86.19 Personal history of other infectious and parasitic diseases; Z68.36 Body mass index [BMI] 36.0-36.9, adult
CPT/HCPCS: 74174; 80048; 80053; 85014; 85018; 85025; 85027; 86850; 86900; 86901; 99285; Q9967

== ENCOUNTER → 2023-11-19 11:35 | Outpatient (REF) | payer OTHER, SELFPAY ==
[2023-11-19 13:19] LABS: Hepatitis B Surface Antibody Positive
[2023-11-19 14:14] LABS: Rubella Positive
[2023-11-21 12:18] LABS: Quantiferon Mitogen minus NIL 9.99 IU/mL; Quantiferon NIL 0.01 IU/mL; Quantiferon TB Gold Plus Negative (Negative)
== END ==
LOC: REG 11:35
PROVIDERS: ATTENDING PHYSICIAN Nurse Practitioner Family
DX: Z23 Encounter for immunization (principal)
CPT/HCPCS: 36415; 86480; 86706; 86735; 86762; 86765; 86787

== ENCOUNTER → 2024-01-10 07:30 | Outpatient (REF) | payer OTHER, SELFPAY | LOC: RAD 07:30 | PROVIDERS: ATTENDING PHYSICIAN Registered Nurse; FAMILY PHYSICIAN Family Medicine | DX: I71.43 Infrarenal abdominal aortic aneurysm, without rupture (principal) | CPT/HCPCS: 76770 ==

== ENCOUNTER → 2024-03-02 08:20 | Outpatient (REF) | payer OTHER, SELFPAY | LOC: RAD 08:20 | PROVIDERS: ATTENDING PHYSICIAN Podiatrist Foot & Ankle Surgery; FAMILY PHYSICIAN Family Medicine | DX: I73.89 Other specified peripheral vascular diseases (principal); M79.675 Pain in left toe(s) | CPT/HCPCS: 93922; 93925 ==

== ENCOUNTER → 2024-04-02 07:37 | Outpatient (REF) | payer OTHER, SELFPAY | LOC: MRI 3T 07:37 | PROVIDERS: ATTENDING PHYSICIAN Physician Assistant; FAMILY PHYSICIAN Family Medicine | DX: M54.12 Radiculopathy, cervical region (principal) | CPT/HCPCS: 72141 ==

== ENCOUNTER 2024-07-25 06:32 | Outpatient (RCR) | payer OTHER, SELFPAY | END 2024-07-25 23:59 | disposition home or self-care (01) | LOC: RPT 06:32 | PROVIDERS: ATTENDING PHYSICIAN Physician Assistant; FAMILY PHYSICIAN Family Medicine | DX: M54.16 Radiculopathy, lumbar region (principal); Z73.6 Limitation of activities due to disability | CPT/HCPCS: 97110; 97162 ==

== ENCOUNTER 2024-08-28 10:22 | Outpatient (RCR) | payer OTHER, SELFPAY | END 2024-08-28 23:59 | disposition home or self-care (01) | LOC: RPT 10:22 | PROVIDERS: ATTENDING PHYSICIAN Physician Assistant; FAMILY PHYSICIAN Family Medicine | DX: M54.16 Radiculopathy, lumbar region (principal); Z73.6 Limitation of activities due to disability; M62.81 Muscle weakness (generalized) | CPT/HCPCS: 97110; 97112 ==

== ENCOUNTER 2024-09-04 09:58 | Outpatient (RCR) | payer OTHER, SELFPAY | END 2024-09-04 23:59 | disposition home or self-care (01) | LOC: RPT 09:58 | PROVIDERS: ATTENDING PHYSICIAN Physician Assistant; FAMILY PHYSICIAN Family Medicine | DX: M54.16 Radiculopathy, lumbar region (principal); Z73.6 Limitation of activities due to disability; M62.81 Muscle weakness (generalized) | CPT/HCPCS: 97110; 97112 ==

== ENCOUNTER → 2024-09-22 09:24 | Outpatient (REF) | payer OTHER, SELFPAY | LOC: RAD 09:24 | PROVIDERS: ATTENDING PHYSICIAN Surgery Vascular Surgery; FAMILY PHYSICIAN Family Medicine | DX: I71.40 Abdominal aortic aneurysm, without rupture, unspecified (principal) | CPT/HCPCS: 76770 ==